=== PATIENT | female | born 1985 | race Caucasian/White ===

== ENCOUNTER 2020-04-16 11:09 | Emergency (ER) | payer MEDICAID ==
[~2020-04-16] VITALS: Ht 175.3 cm; Wt 82.4 kg
[~2020-04-16 11:09] MED LIST: ASPI1TAB PO; HYDR-4383 PO; IBUP-1984 PO; IBUP-1985 PO; ONDA4TAB6 PO
[2020-04-16 11:15] VITALS: BP 156/108
[2020-04-16] MEDS ORDERED: TETanus/Pertussis (Acell)/Diphther VAC/PF (Tdap-Adult) 0.5ml syringe IMVAC ONE (11:20)
[2020-04-16] MEDS ORDERED: LIDOcaine 1% W/epiNEPHrine 1:200,000 10ml vial IJ ONE (11:20)
[2020-04-16] MEDS ORDERED: CEPH250T PO (11:43)
== END 2020-04-16 12:00 | disposition home or self-care (01) ==
LOC: ER 11:09
DX: S61.200A Unspecified open wound of right index finger without damage to nail, initial encounter (principal); W23.0XXA Caught, crushed, jammed, or pinched between moving objects, initial encounter; Y93.89 Activity, other specified; Y92.012 Bathroom of single-family (private) house as the place of occurrence of the external cause; Y99.8 Other external cause status
CPT/HCPCS: 64450; 73140; 90471; 90715; 99284

== ENCOUNTER 2023-08-21 08:48 | Emergency (ER) | payer MEDICAID ==
[~2023-08-21] VITALS: Ht 175.3 cm; Wt 76.8 kg
[2023-08-21 08:54] VITALS: BP 143/99
[2023-08-21] MEDS ORDERED: PRED20TA PO (10:11)
[2023-08-21] MEDS ORDERED: BENZ-38 PO (10:11)
[2023-08-21] MEDS ORDERED: ALBU8HFA INH (10:11)
[2023-08-21 10:46] VITALS: PULSE 74; RESP 18; TEMP 97.5; O2SAT 96
== END 2023-08-21 10:48 | disposition home or self-care (01) ==
LOC: ER 08:49
DX: J06.9 Acute upper respiratory infection, unspecified (principal); L50.9 Urticaria, unspecified; F12.90 Cannabis use, unspecified, uncomplicated; Z88.2 Allergy status to sulfonamides; Z79.899 Other long term (current) drug therapy; Z79.82 Long term (current) use of aspirin; Z98.890 Other specified postprocedural states
CPT/HCPCS: 99283

== ENCOUNTER 2025-02-05 06:24 | Emergency (ER) | payer MEDICAID ==
[~2025-02-05] VITALS: Ht 172.7 cm; Wt 83.0 kg
[~2025-02-05 06:24] MED LIST changes: -IBUP-1985 PO; +IBUP600T52 PO
[2025-02-05 06:30] VITALS: BP 146/95; PULSE 91; TEMP 97.6; O2SAT 100
--- NOTE | 2025-02-05 07:10 | Physician Documentation ---
HPI ~ General Chief Complaint: Tooth Problem Stated Complaint: DENTAL ABSCESS Time Seen by MD: 06:59 Primary Medical Doctor: [facility] History of Present Illness HPI Comment 39-year-old female who presents with right sided dental pain and neck swelling She tells me that she has a bad tooth in the right lower side. She has had intermittent pain. Over the past couple of days she has had increased pain, and now has swelling to the right side of her neck. She states it is painful when she swallows but she is not having difficulty swallowing. She also feels nauseous. She did take a dose of someone's Augmentin last night. No fevers or chills. No other new or different symptoms. Medication Reconciliation Allergies: Coded Allergies: sulfamethoxazole (Verified Allergy, Unknown, 02/05/25) trimethoprim (Verified Allergy, Unknown, 02/05/25) Scheduled Amox Tr/Potassium Clavulanate 875/125 MG (Augmentin 875/125 MG), 1 TAB PO Q12H Hydrocodone/Acetaminophen ([place] 5-325 Tablet), 1 TAB PO TID PRN Ibuprofen (Ibuprofen), 1 TAB PO Q6H Scheduled PRN Aspirin/Acetaminophen/Caffeine (Excedrin Caplet), 1 EACH PO Q6H PRN for mild to moderate pain, (Reported) Ibuprofen* (Motrin*), 600 MG PO Q12H PRN for moderate or severe pain, (Reported) ONDANSETRON ODT 4mg tablet (Ondansetron Odt), 1 TAB PO Q6H PRN PRN for nausea/vomiting Ondansetron Hcl (Zofran), 1 TABLET PO Q6H PRN for nausea/vomiting Oxycodone Hcl/Acetaminophen 5/325 MG* (Percocet 5/325 MG*), 1 TAB PO TID PRN PRN for pain Past Medical History Past Medical History: UTI, Chronic Back Pain, Bipolar, Depression Past Surgical History: Alcohol Use: None Drug Use: marijuana Lives with: S/O Occupation: employed Review of Systems Constitutional: Denies: fever ENT: Reports: throat pain, mouth swelling Physical Exam Vital Signs: Temperature: 97.6, Source: Temporal, Heart Rate: 91, Respiratory Rate: 15, BP: 146/95, Pulse Oximetry: 100, Weight: 83.000 Physical Exam General: This is an uncomfortable appearing young female, family at bedside HEENT: The patient has obvious swelling to the right jaw and neck, with tenderness to palpation over the right anterior lateral neck. She has poor dentition, with a partially broken tooth in the right lower jaw that is tender to percussion, but without periapical abscess or significant gum swelling. No swelling under the tongue or in the posterior oropharynx. She is swallowing secretions. No stridor Heart: Regular rate and rhythm, normal-appearing peripheral perfusion Lungs: normal work of breathing, normal oxygen saturation on room air Neuro: Alert and oriented Psychiatric: Appears tired but is cooperative with exam Progress Results/Orders Results/Orders Orders - ANGELA KELLOGG MD Ct Neck Soft Tissues (02/05/25 07:05) Completed Orders - ANGELA KELLOGG MD Cbc/Diff (02/05/25 07:05) CMP (02/05/25 07:05) Ct Neck Soft Tissues (02/05/25 07:05) Ampicillin/Sulbac 3gm/Ns 100ml (Unasyn 3 (02/05/25 08:00) Ketorolac Trometh 15mg/Ml Vial (Toradol (02/05/25 07:10) Ondansetron Inj. (Zofran 4mg/2ml Vial) (02/05/25 07:10) Morphine 4mg/Ml Inj. (Morphine Inj.) (02/05/25 08:40) Diphenhydramine Inj (Benadryl Inj.) (02/05/25 09:00) Iohexol 300mg/Ml 100ml Inj. (Omnipaque-3 (02/05/25 09:01) Medications Received in ER Medications (Trade) Dose Ordered Sig/Swapna Route PRN Reason Start Time Stop Time Status Last Admin Dose Admin Ampicillin Sodium/ Sulbactam Sodium 100 ml @ 200 mls/hr Q6H IV 02/05/25 08:00 02/05/25 11:01 DC 02/05/25 07:50 200 MLS/HR (Toradol injection) 15 mg ONCE ONCE IV 02/05/25 07:10 02/05/25 07:13 DC 02/05/25 07:37 15 MG (Zofran 4mg/2ml vial) 4 mg ONCE ONCE IV 02/05/25 07:10 02/05/25 07:11 DC 02/05/25 07:37 4 MG (morphine inj.) 4 mg ONCE ONCE IV 02/05/25 08:40 02/05/25 08:41 DC 02/05/25 08:51 4 MG (Benadryl inj.) 25 mg ONCE ONCE IV 02/05/25 09:00 02/05/25 09:01 DC 02/05/25 09:03 25 MG Vital Signs 02/05/25 02/05/25 02/05/25 02/05/25 06:30 07:37 08:24 08:51 Temp 97.6 Pulse 91 Resp 15 16 16 12 B/P (MAP) 146/95 Pulse Ox 100 02/05/25 09:00 Resp 17 Laboratory Tests Test 02/05/25 08:14 White Blood Count 12.9 H Red Blood Count 4.26 Hemoglobin 13.1 Hematocrit 38.5 Mean Corpuscular Volume 90.4 Mean Corpuscular Hemoglobin 30.9 Mean Corpuscular Hemoglobin Concent 34.1 Red Cell Distribution Width 13.7 Platelet Count 241 Mean Platelet Volume 9.5 Neutrophils (%) (Auto) 74.6 Lymphocytes (%) (Auto) 16.0 L Monocytes (%) (Auto) 8.1 Eosinophils (%) (Auto) 1.1 Basophils (%) (Auto) 0.2 Neutrophils # (Auto) 9.6 H Lymphocytes # (Auto) 2.1 Monocytes # (Auto) 1.0 H Eosinophils # (Auto) 0.1 Basophils # (Auto) 0.0 CBC Comment Sodium Level 137 Potassium Level 4.0 Chloride Level 107 Carbon Dioxide Level 21.3 L Anion Gap 9 Blood Urea Nitrogen 9 Creatinine 0.51 Estimated GFR/1.73 m2 > 90 BUN/Creatinine Ratio 17.6 Glucose Level 104 Calcium Level 8.7 Total Bilirubin 0.7 Aspartate Amino Transf (AST/SGOT) 14 Alanine Aminotransferase (ALT/SGPT) 16 Alkaline Phosphatase 74 Total Protein 7.4 Albumin 3.8 Globulin 3.6 Albumin/Globulin Ratio 1.1 Chemistry Comments EKG/XRAY/CT/US/VASC/MRI CT : Impression I personally interpreted the CT scan, and this shows soft tissue swelling and an enlarged lymph node but no abscess Medical Decision Making Additional information obtaine: family Findings Further history obtained from the Differential Dx:Considerations: Include: Facial Cellulitis, Periapical abscess, Peridontal abscess, Tooth Fracture Additional Comment The patient presents with dental pain and right neck swelling. Per her history and exam this appears consistent with a dental infection with possible abscess. An IV was placed and she was given pain and nausea medications as well as IV Unasyn. Labs are overall unremarkable. CT scan shows soft tissue swelling but no abscess. On re-evaluation she was feeling better. She felt comfortable returning home with oral antibiotics and pain medications. She will be discharged with home care instructions and return precautions. Departure Time of Disposition: 10:14 Disposition: HOME / SELF CARE / HOMELESS Impression: Primary Impression: Dental infection Condition: Stable Discharge Instructions: Dental Pain Referrals: NO PRIMARY CARE PROVIDER (PCP) Prescriptions ONDANSETRON ODT 4mg tablet (ONDANSETRON ODT) 4 Mg Tab.rapdis 1 TAB PO Q6H PRN PRN for nausea/vomiting for 5 Days, #20 TAB 0 Refills Prov: ANGELA KELLOGG MD 02/05/25 Oxycodone Hcl/Acetaminophen 5/325 MG* (Percocet 5/325 MG*) 5 Mg/325 Mg Tablet 1 TAB PO TID PRN PRN for pain for 5 Days, #15 TAB Prov: ANGELA KELLOGG MD 02/05/25 Amox Tr/Potassium Clavulanate 875/125 MG (Augmentin 875/125 MG) 875 Mg-125 Mg Tablet 1 TAB PO Q12H for 10 Days, #20 TAB Prov: ANGELA KELLOGG MD 02/05/25 Education Educated: Patient Educated regarding: diagnosis, treatment, need for follow up Signature Scribe Signature: tristin Attestation: ANGELA Lane MD Feb 05, 2025 07:09
[2025-02-05] MEDS: ketorolac trometh 15mg/ml vial 15 MG/ML ML IV ONE (07:37)
[2025-02-05] MEDS: ondansetron/PF 4mg/2ml inj IV ONE (07:37)
[2025-02-05] MEDS: ampicillin/sulbac 3gm/NS 100ml 100 ML IV SCH (07:50)
[2025-02-05 08:26] LABS: MEAN PLATELET VOLUME 9.5 FL (7.4-10.4); RED CELL DISTRIBUTION WIDTH 13.7 % (11.5-14.5)
[2025-02-05] MEDS: morphine 4 MG/ML inj SYRINge IV ONE (08:51)
[2025-02-05 08:55] LABS: CREATININE 0.51 MG/DL (0.40-0.90); TOTAL CARBON DIOXIDE 21.3 MMOL/L (24-32); eCRCL 146 ML/MIN; eGFR > 90 ML/MIN
[2025-02-05 09:00] VITALS: RESP 17
[2025-02-05] MEDS ORDERED: iohexol 300mg/ml 100ml inj. ONE (09:01)
--- NOTE | 2025-02-05 09:34 | RADIOLOGY REPORT ---
EXAM: CT CT NECK SOFT TISSUES W/ IV CONTRAST INDICATION: Dental infection, right neck swelling and pain Exam Date: 02/05/2025 09:00 AM COMPARISON: None TECHNIQUE: CT of the neck with intravenous contrast. RADIATION DOSE: CTDIvol: 14.5 mGy, DLP: 400 mGy*cm CONTRAST: Type of contrast: Omnipaque 300 Contrast injected: 80 ml FINDINGS: There is soft tissue swelling in the right submandibular region with enlarged right submandibular lymph nodes. The right submandibular gland is edematous in appearance. There is no focal abscess present. Sinuses, nasopharynx and oropharynx are unremarkable in appearance without airway compromise. The thyroid gland and vocal cords are normal in appearance. Limited views of the lung apices unremarkable IMPRESSION: 1. Soft tissue swelling right submandibular region with enlarged lymph node glands probably due to dental infection. 2. No evidence of focal abscess or airway compromise
[2025-02-05] MEDS ORDERED: ONDA-243 PO (10:15)
[2025-02-05] MEDS ORDERED: AMOX-580 PO (10:15)
[2025-02-05] MEDS ORDERED: PER5325T PO (10:15)
== END 2025-02-05 11:00 | disposition home or self-care (01) ==
LOC: ER 06:24
DX: K04.7 Periapical abscess without sinus (principal); G89.29 Other chronic pain; F31.9 Bipolar disorder, unspecified; F12.90 Cannabis use, unspecified, uncomplicated; Z88.2 Allergy status to sulfonamides; Z88.8 Allergy status to other drugs, medicaments and biological substances; Z79.899 Other long term (current) drug therapy; Z87.440 Personal history of urinary (tract) infections; Z98.890 Other specified postprocedural states
CPT/HCPCS: 36415; 70491; 80053; 85025; 96365; 96375; 99285; J0295; J1200; J1885; J2270; J2405; Q9967

== ENCOUNTER 2025-02-07 06:24 | Emergency (ER) | payer MEDICAID ==
[~2025-02-07] VITALS: Ht 172.7 cm; Wt 92.3 kg
[~2025-02-07 06:24] MED LIST changes: +AMOX-580 PO; +ONDA-243 PO; +PER5325T PO
[2025-02-07 06:34] VITALS: TEMP 97
--- NOTE | 2025-02-07 09:31 | Physician Documentation ---
History of Present Illness ~ Chief Complaint: Sore Throat Stated Complaint: THROAT/NECK PAIN Time Seen by MD: 09:05 [facility] Mode of Arrival: POV, Ambulatory HPI Seen in ED for dental infection without abscess 2 days ago on reports continued dysphasia and pain with fever. Patient received IV antibiotics at the time of visit two days ago. Additionally had CT imaging that showed no abscess. Medication Reconciliation Allergies: Coded Allergies: sulfamethoxazole (Verified Allergy, Unknown, 02/07/25) trimethoprim (Verified Allergy, Unknown, 02/07/25) Scheduled Amox Tr/Potassium Clavulanate 875/125 MG (Augmentin 875/125 MG), 1 TAB PO Q12H Hydrocodone/Acetaminophen ([place] 5-325 Tablet), 1 TAB PO TID PRN Ibuprofen (Ibuprofen), 1 TAB PO Q6H Scheduled PRN Aspirin/Acetaminophen/Caffeine (Excedrin Caplet), 1 EACH PO Q6H PRN for mild to moderate pain, (Reported) Ibuprofen* (Motrin*), 600 MG PO Q12H PRN for moderate or severe pain, (Reported) ONDANSETRON ODT 4mg tablet (Ondansetron Odt), 1 TAB PO Q6H PRN PRN for nausea/vomiting Ondansetron Hcl (Zofran), 1 TABLET PO Q6H PRN for nausea/vomiting Oxycodone Hcl/Acetaminophen 5/325 MG* (Percocet 5/325 MG*), 1 TAB PO TID PRN PRN for pain Past Medical History Past Medical History: UTI, Chronic Back Pain, Bipolar, Depression Past Surgical History: Alcohol Use: None Drug Use: marijuana Lives with: S/O Occupation: employed Review of Systems All Other Systems at this time: Reviewed and Negative ENT: Denies: throat swelling, voice change Gastrointestinal: Reports: dysphagia Physical Exam Vital Signs: RN Vital Signs have been reviewed: Yes, Temperature: 97.0, Source: Temporal, Heart Rate: 104, Respiratory Rate: 18, BP: 156/103, Pulse Oximetry: 98, Weight: 92.300 Oxygen Flow Rate: 0 General Appearance: alert, WD/WN, mild distress Eye Lid: normal inspection Conjunctiva: normal inspection Cornea: normal inspection Pupils/EOM/Fundus: PERRLA Mouth/Throat: dental tenderness, mandibular swelling; No: excessive drooling, tongue swollen, tonsillar exudate, tonsillar erythema, tonsillar hypertrophy, trismus, uvula swelling, voice changes Teeth/Gums: carious Face: swelling Head: swelling Neck: trachea midline, lymphadenopathy (R) Cardiovascular: regular rate, rhythm Neurologic: oriented x4, glucose and syrup weigher II-XII nml as tested Psychiatric: normal mood/affect Progress Results/Orders Results/Orders Completed Orders - NAGELA BAUM PAC Normal Saline 1000ml (0.9% Sodium Chlori (02/07/25 09:30) Ampicillin/Sulbac 3gm/Ns 100ml (Unasyn 3 (02/07/25 14:00) Dexamethasone Inj (Decadron 10mg/Ml Inj) (02/07/25 09:27) Cbc/Diff (02/07/25 09:29) BMP (02/07/25 09:29) C-Reactive Protein (02/07/25 09:29) Ketorolac Trometh 30mg/Ml Vial (Toradol (02/07/25 09:50) Ampicillin/Sulbac 3gm/Ns 100ml (Unasyn 3 (02/07/25 10:06) Medications Received in ER Medications (Trade) Dose Ordered Sig/Swapna Route PRN Reason Start Time Stop Time Status Last Admin Dose Admin Sodium Chloride 1,000 ml @ 1,000 mls/hr ONCE ONCE IV 02/07/25 09:30 02/07/25 10:29 DC 02/07/25 09:58 1,000 MLS/HR (Decadron 10mg/ ml inj) 10 mg ONCE STAT IV 02/07/25 09:27 02/07/25 09:30 DC 02/07/25 09:57 10 MG (Toradol inj. 30mg/ml) 30 mg ONCE ONCE IV 02/07/25 09:50 02/07/25 09:51 DC 02/07/25 09:56 30 MG Vital Signs 02/07/25 02/07/25 02/07/25 06:34 08:56 09:56 Temp 97.0 Pulse 104 Resp 20 18 18 B/P (MAP) 156/103 Pulse Ox 98 O2 Flow Rate 0 Laboratory Tests Test 02/07/25 09:44 White Blood Count 10.1 Red Blood Count 4.57 Hemoglobin 14.0 Hematocrit 41.4 Mean Corpuscular Volume 90.5 Mean Corpuscular Hemoglobin 30.7 Mean Corpuscular Hemoglobin Concent 33.9 Red Cell Distribution Width 14.3 Platelet Count 247 Mean Platelet Volume 10.1 Neutrophils (%) (Auto) 76.1 H Lymphocytes (%) (Auto) 18.1 L Monocytes (%) (Auto) 5.0 Eosinophils (%) (Auto) 0.5 Basophils (%) (Auto) 0.3 Neutrophils # (Auto) 7.7 Lymphocytes # (Auto) 1.8 Monocytes # (Auto) 0.5 Eosinophils # (Auto) 0.1 Basophils # (Auto) 0.0 CBC Comment Sodium Level 140 Potassium Level 3.6 Chloride Level 108 H Carbon Dioxide Level 23.6 L Anion Gap 8 Blood Urea Nitrogen 6 L Creatinine 0.49 Estimated GFR/1.73 m2 > 90 BUN/Creatinine Ratio 12.2 Glucose Level 99 Calcium Level 9.2 C-Reactive Protein 3.36 H Albumin 3.9 Chemistry Comments Medical Decision Making Additional information obtaine: old records Findings 39-year-old female returns to the emergency department for re-evaluation of dental infection without abscess. Initial examination is reassuring for no acute findings consistent with Daniel's angina, angioedema or suspected posterior pharyngeal abscess. We will go ahead and provide patient with pain management, screening labs Decadron and Unasyn. Patient has no waiting comfortably without airway compromise for re-evaluation. Patient re-evaluated. Continues to have no elevation of the submental node or tracking across the midline. She is safe for discharge with close follow up. Ear Diff. Dx: Considerations: Include: Other Eye Diff. Dx: Considerations: Include: Other Nose Diff. Dx: Considerations: Include: Other Tooth Diff. Dx: Considerations: Include: Alveolar fracture, Aveolar osteitis, ANUG, Facial cellulitis, Periapical abscess, Periodontal abscess, Post- extraction bleeding, Pulpitis, Trigeminal neuralgia, Tooth-avulsion, Tooth- eruption, Tooth-fracture, Tooth-subluxation, Other Throat Diff Dx: Considerations: Include: AIDS, Epiglottitis, Esophageal candidiasis, Hand foot mouth disease, Herpangina, Herpetic stomatitis, Herpes simplex, Infection mononucleosis, Immunodeficiency, Daniel's angina, Perit onsillar abscess, Peritonsillar cellulitis, Pharyngitis-diphtheria, Pharyngitis- strepococcal, Pharyngitis-viral, Thrush, URI, Other Departure Disposition: HOME / SELF CARE / HOMELESS Impression: Primary Impression: Dental infection Additional Impression: Dental caries Condition: Improved Discharge Instructions: Dental Abscess, [id number] Additional Instructions: Please continue with the antibiotics as directed. Take pain management as directed and as needed. Stay well hydrated. Please return for re-evaluation in 48-72 hours or sooner if worse. Thank you for visiting emergency department [facility]. Referrals: NO PRIMARY CARE PROVIDER (PCP) Prescriptions Methylprednisolone (Medrol Dosepak) 4 Mg Tab.ds.pk 4 MG PO DAILY, #1 TAB 1 dose pack per packaging Prov: ANGELA BAUM 02/07/25 Oxycodone HCl/Acetaminophen (Percocet 5-325 mg Tablet) 5 Mg-325 Mg Tablet 1 TABLET PO Q6H for pain, #8 TABLET Prov: ANGELA BAUM 02/07/25 Education Educated: Patient Educated regarding: diagnosis, treatment, prognosis, need for follow up Signature Scribe Signature: . Attestation: . ANGELA BAUM PAC Feb 07, 2025 09:31
[2025-02-07] MEDS: ketorolac trometh 30MG/ML vial 30 MG/ML VIAL IV ONE (09:56)
[2025-02-07] MEDS: dexamethasone sod phosphate 10mg/ml inj IV STA (09:57)
[2025-02-07] MEDS: normal saline 1000ml 1,000 ML IV ONE (09:58)
[2025-02-07 10:01] LABS: MEAN PLATELET VOLUME 10.1 FL (7.4-10.4); RED CELL DISTRIBUTION WIDTH 14.3 % (11.5-14.5)
[2025-02-07 10:13] LABS: CREATININE 0.49 MG/DL (0.40-0.90); TOTAL CARBON DIOXIDE 23.6 MMOL/L (24-32); eCRCL 152 ML/MIN; eGFR > 90 ML/MIN
[2025-02-07] MEDS ORDERED: OXYC-145 PO (10:58)
[2025-02-07] MEDS ORDERED: METH4TAB81 PO (10:58)
[2025-02-07] MEDS: ampicillin/sulbac 3gm/NS 100ml 100 ML IV ONE (11:04)
[2025-02-07 11:36] VITALS: BP 144/98; PULSE 85; RESP 14; O2SAT 99
[2025-02-07] MEDS ORDERED: ampicillin/sulbac 3gm/NS 100ml 100 ML IV ONE (14:00)
== END 2025-02-07 11:34 | disposition home or self-care (01) ==
LOC: ER 06:24
DX: K04.7 Periapical abscess without sinus (principal); K02.9 Dental caries, unspecified; G89.29 Other chronic pain; F31.9 Bipolar disorder, unspecified; F12.90 Cannabis use, unspecified, uncomplicated; Z88.2 Allergy status to sulfonamides; Z88.8 Allergy status to other drugs, medicaments and biological substances; Z87.440 Personal history of urinary (tract) infections; Z79.899 Other long term (current) drug therapy; Z98.890 Other specified postprocedural states
CPT/HCPCS: 36415; 80048; 85025; 86140; 96361; 96365; 96375; 99284; J0295; J1100; J1885; J7030

== ENCOUNTER 2025-03-04 16:49 | Emergency (ER) | payer MEDICAID ==
[~2025-03-04] VITALS: Ht 172.7 cm; Wt 92.2 kg
[~2025-03-04 16:49] MED LIST changes: -AMOX-580 PO; +METH4TAB81 PO; +OXYC-145 PO; -PER5325T PO
[2025-03-04 16:56] VITALS: TEMP 98.2
--- NOTE | 2025-03-04 18:01 | Physician Documentation ---
HPI ~ General Chief Complaint: Tooth Problem Stated Complaint: ABCESS Time Seen by MD: 17:04 Primary Medical Doctor: [facility] Mode of Arrival: POV History of Present Illness HPI Comment 39-year-old female returns to the emergency department for evaluation of right neck swelling we will was thought to be from a dental infection. She is taking a two week course of antibiotic continuous swelling induration to the submandibular area the that does not cross the midline. No fevers, night sweats or recent weight loss. No dysphagia. Medication Reconciliation Allergies: Coded Allergies: sulfamethoxazole (Verified Allergy, Unknown, 03/04/25) trimethoprim (Verified Allergy, Unknown, 03/04/25) Scheduled Amox Tr/Potassium Clavulanate 875/125 MG (Augmentin 875/125 MG), 1 TAB PO BID Hydrocodone/Acetaminophen ([place] 5-325 Tablet), 1 TAB PO TID PRN Ibuprofen (Ibuprofen), 1 TAB PO Q6H Methylprednisolone (Medrol Dosepak), 4 MG PO DAILY Oxycodone HCl/Acetaminophen (Percocet 5-325 mg Tablet), 1 TABLET PO Q6H Scheduled PRN Aspirin/Acetaminophen/Caffeine (Excedrin Caplet), 1 EACH PO Q6H PRN for mild to moderate pain, (Reported) Ibuprofen* (Motrin*), 600 MG PO Q12H PRN for moderate or severe pain, (Reported) ONDANSETRON ODT 4mg tablet (Ondansetron Odt), 1 TAB PO Q6H PRN PRN for nausea/vomiting Ondansetron Hcl (Zofran), 1 TABLET PO Q6H PRN for nausea/vomiting Past Medical History Past Medical History: UTI, Chronic Back Pain, Bipolar, Depression Past Surgical History: Alcohol Use: None Drug Use: marijuana Lives with: S/O Occupation: employed Review of Systems All Other Systems at this time: Reviewed and Negative Constitutional: Reports: see HPI ENT: Reports: see HPI Physical Exam Vital Signs: RN Vital Signs have been reviewed: Yes, Temperature: 98.2, Source: Temporal, Heart Rate: 98, Respiratory Rate: 16, BP: 152/95, Pulse Oximetry: 100, Weight: 92.200 Oxygen Flow Rate: 0 General Appearance: alert, WD/WN, mild distress EENT General: other (Moderate induration of the submandibular area. No submental swelling. No gross gingival erythema and no periapical or periodontal abscess noted) Ear: auricle normal Mouth/Throat: normal mouth inspection Palate: normal inspection Teeth/Gums: carious Face: swelling Head: normal inspection Neck: lymphadenopathy (R) Respiratory: lungs clear Chest: no accessory muscle use Cardiovascular: normal peripheral pulses Neurologic: oriented x4 Psychiatric: normal mood/affect Progress Results/Orders Results/Orders Completed Orders - ANGELA BAUM PAC Ketorolac Trometh 15mg/Ml Vial (Toradol (03/04/25 17:50) Amox Tr/Potassium Clavulanate (Augmentin (03/04/25 20:20) Medications Received in ER Medications (Trade) Dose Ordered Sig/Swapna Route PRN Reason Start Time Stop Time Status Last Admin Dose Admin (Toradol injection) 15 mg ONCE ONCE IV 03/04/25 17:50 03/04/25 17:51 DC 03/04/25 18:10 15 MG (Augmentin 875-125mg tablet) 1 tab ONCE ONCE PO 03/04/25 20:20 03/04/25 20:21 DC 03/04/25 20:26 1 TAB Vital Signs 03/04/25 03/04/25 03/04/25 03/04/25 16:56 17:43 17:43 18:10 Temp 98.2 Pulse 115 98 Resp 18 15 16 18 B/P (MAP) 165/97 152/95 (114) Pulse Ox 98 100 O2 Flow Rate 0 0 03/04/25 03/04/25 18:57 20:29 Pulse 81 80 Resp 16 20 B/P (MAP) 120/83 (95) 148/98 Pulse Ox 99 97 O2 Flow Rate 0 Medical Decision Making Additional information obtaine: old records Findings 39-year-old female with a unresolved right submandibular lymphadenopathy despite two weeks of Augmentin. We will repeat CT imaging with contrast to evaluate for tumor mass or abscess. Unasyn IV piggyback and Toradol for discomfort. Patient resting comfortably. No trismus, stridor or dysphagia. CT imaging reassuring as is consistent with prior findings. Patient to begin outpatient Augmentin follow up with a dentist and ENT. Safely discharged without consideration for Daniel's angina angioedema or space-occupying mass. Differential Dx:Considerations: Include: Alveolar fracture, Alveolar osteitis, ANUG, Facial Cellulitis, Periapical abscess, Peridontal abscess, Post-extraction bleeding, Pulpitis, Tooth avulsion, Tooth eruption, Tooth Fracture, Trigeminal neuralgia, Tooth subluxation, Other Departure Disposition: HOME / SELF CARE / HOMELESS Impression: Primary Impression: Dental abscess Condition: Stable Discharge Instructions: Dental Pain, Dental Abscess Additional Instructions: Your CT imaging he is reassuring the likely in his of dental etiology. You received IV antibiotics in the emergency department and discharge you another course of Augmentin. Please make follow up appointment with local ENT. Thank you for visiting [facility] and having Sydney Abreu. Referrals: NO PRIMARY CARE PROVIDER (PCP) Prescriptions Amox Tr/Potassium Clavulanate 875/125 MG (Augmentin 875/125 MG) 875 Mg-125 Mg Tablet 1 TAB PO BID, #20 TAB Prov: ANGELA BAUM 03/04/25 Education Educated: Patient Educated regarding: diagnosis, treatment, prognosis, need for follow up Signature Scribe Signature: . Attestation: . ANGELA BAUM Mar 04, 2025 18:01
[2025-03-04] MEDS: ketorolac trometh 15mg/ml vial 15 MG/ML ML IV ONE (18:10)
[2025-03-04] MEDS ORDERED: AMOX-580 PO (20:12)
[2025-03-04] MEDS: amox tr/potassium clavulanate 875/125mg TAB PO ONE (20:26)
[2025-03-04 20:29] VITALS: BP 148/98; PULSE 80; RESP 20; O2SAT 97
== END 2025-03-04 20:31 | disposition home or self-care (01) ==
LOC: ER 16:50
DX: K04.7 Periapical abscess without sinus (principal); G89.29 Other chronic pain; F12.90 Cannabis use, unspecified, uncomplicated; F31.9 Bipolar disorder, unspecified; Z88.2 Allergy status to sulfonamides; Z88.8 Allergy status to other drugs, medicaments and biological substances; Z87.440 Personal history of urinary (tract) infections; Z79.899 Other long term (current) drug therapy; Z98.890 Other specified postprocedural states
CPT/HCPCS: 70491; 96374; 99285; J1885; 99283